=== PATIENT | male | born 1975 | race Caucasian/White ===

== ENCOUNTER 2020-12-17 19:13 | Emergency (ER) | payer OTHER, SELFPAY ==
--- NOTE | ~2020-12-17 | XR_ITS ---
XR chest 1V portable DATE: 12/17/2020 23:53 INDICATION: Left lower rib pain TECHNIQUE: Portable upright AP chest on 12/17/2020 at 2353 hours COMPARISON: None FINDINGS: Heart size appears within normal range considering magnification associated with AP project ion. No hilar or mediastinal enlargement. No pulmonary consolidation, pleural effusion, pulmonary vas cular congestion or pneumothorax is evident. Included skeletal structures are unremarkable. IMPRESSION: No active cardiopulmonary disease Reviewed, dictated and finalized at location [facility].
--- NOTE | ~2020-12-17 | CT_ITS ---
EXAMINATION: CT abdomen pelvis w con DATE: 12/17/2020 20:56 INDICATION: Abdominal pain for 6 days TECHNIQUE: Computed tomography (CT) of the abdomen and pelvis was performed with 100 cc Omnipaque 350 intravenous contrast. Automated exposure control and iterative reconstruction technique were employe d. Exam dose: 1001.61 mGy-cm total exam DLP. COMPARISON: None. FINDINGS: Mild discoid atelectasis or scarring in the lower lobes, primarily on the left. Normal heart size. No pericardial or pleural effusion. Very small sliding hiatal hernia. Approximately 2.7 mm calcification of the uncinate process of the pancreas. The liver, gallbladder, b ile ducts, pancreas and pancreatic duct otherwise appear normal. No renal mass lesion or urinary tract calculus or hydroureteronephrosis. The urinary bladder is unrem arkable. There are prostate gland calcifications as well as prostate and asymmetric left seminal vesi lj enlargement. Normal caliber of the abdominal aorta. No intraperitoneal or retroperitoneal or pelvic mass lesion or adenopathy or ascites is evident. Normal appendix. No bowel obstruction, bowel wall thickening, pneumatosis or intraperitoneal free air . Small fat-containing left inguinal hernia. Small fat-containing umbilical hernia. Degenerative disc disease at L3-4 and L4-5 with minimal retrolisthesis. Transitional first sacral vertebra. No suspicious osteolytic or osteoblastic lesions are noted. IMPRESSION: Very small sliding hiatal hernia Small pancreatic calcification, possibly due to mild chronic pancreatitis Normal appendix Prostate enlargement and calcifications, asymmetric left seminal vesicle enlargement. Consider prosta te cancer screening. Reviewed, dictated and finalized at [facility]. Reviewed, dictated and finalized at location A. IMPRESSION: Very small sliding hiatal hernia Small pancreatic calcification, possibly due to mild chronic pancreatitis Normal appendix Prostate enlargement and calcifications, asymmetric left seminal vesicle enlarg ement. Consider prostate cancer screening.
[2020-12-17 19:32] VITALS: BP 157/77; PULSE 73; RESP 18; O2SAT 100
[2020-12-17 19:52] LABS: Basophils Absolute Auto 0.1 K/mm3 (0.0-0.1); Basophils Percent Auto 0.8 % (0.2-1.2); Eosinophils Absolute Auto 0.3 K/mm3 (0-0.3); Eosinophils Percent Auto 3.1 % (0-4.4); Hematocrit 45.4 % (42.0-52.0); Hemoglobin 15.6 g/dL (14.0-18.0); Immature Granulocyte Absolute 0.03 K/mm3 (0.00-0.031); Immature Granulocyte Percent A 0.3 % (0-0.5); Lymphocytes Absolute Auto 3.29 K/mm3 (0.9-3.2); Lymphocytes Percent Auto 37.6 % (18.3-44.2); Mean Corpuscular HGB Conc 34.4 g/dl (32-36); Mean Corpuscular Hemoglobin 31.1 pg (26-34); Mean Corpuscular Volume 90.6 fl (80-100); Monocytes Absolute Auto 0.7 K/mm3 (0.1-0.6); Monocytes Percent Auto 8.1 % (2.6-8.5); Neutrophils Absolute Auto 4.4 K/mm3 (1.3-6.7); Neutrophils Percent Auto 50.1 % (45.5-73.1); Platelet Count Result 291 k/mm3 (150-375); Red Blood Count 5.01 M/mm3 (4.6-6.20); Red Cell Distribution Width 12.4 % (11.5-14.5); White Blood Count 8.8 K/mm3 (4.5-10.0)
[2020-12-17 19:54] LABS: Add Urine Microscopic? NO; Appearance Urine Clear (Clear); Bilirubin Urine Negative (Negative); Blood Urine Negative (Negative); Color Urine Straw (Yellow); Glucose Urine UA Negative (Negative); Ketones Urine Negative (Negative); Leukocyte Esterase Ur Negative LEU/UL (Negative); Nitrate Urine Negative (Negative); Protein Urine Negative (Negative); Specific Grav Ur 1.009 (1.001-1.035); Urobilinogen Urine Negative mg/dL (<2.0)
[2020-12-17 20:03] LABS: Anion Gap 12 mmol/L (8-16); Blood Urea Nitrogen 14 mg/dL (9-20); Calcium 9.7 mg/dL (8.4-10.2); Carbon Dioxide 26 mmol/L (22-30); Chloride 103 mmol/L (98-107); Estimated CRCL calculation 105 ml/min; Estimated Glomerular Filt Rate > 60; Glucose 101 mg/dL (75-110); Lipase 88 U/L (23-300); Potassium 4.3 mmol/L (3.4-5.0); Sodium 141 mmol/L (137-145)
[2020-12-17 23:16] VITALS: BP 140/80; PULSE 59; RESP 20; TEMP 36.7; O2SAT 100
[2020-12-17 23:23] VITALS: BP 140/80; PULSE 66; RESP 16; O2SAT 100
--- NOTE | 2020-12-17 23:24 | PC.NURSE ---
pt c/o LUQ pain x 1 week. no pcp. denies past medical hx. reports he feels bloated. no s/s of distress. call light in reach.
--- NOTE | 2020-12-17 23:36 | ED.ABDPAIN ---
HPI - Abdominal Pain General Chief Complaint: Abdominal Pain Stated Complaint: adb pain x 6 days Time Seen by Provider: 12/17/20 23:25 Source: patient and RN notes reviewed Mode of arrival: ambulatory History of Present Illness HPI narrative: Patient is 45 years old white male presents with left upper quadrant pain radiating to left lower ribs posteriorly started 6 days ago, back spasm, worse with eating or drinking, denies any relieving factors. Patient denies any recent trauma or new physical activity. Patient also denies any fever, chills, nausea, vomiting, diarrhea, constipation, shortness of breath. Reports intermittent left chest pain. Patient been vaccinated for COVID-19. Does not take medicine, does not smoke, does not drink or uses drugs Related Data Allergies Allergy/AdvReac Type Severity Reaction Status Date / Time No Known Allergies Allergy Verified 12/17/20 23:21 Review of Systems Review of Systems: Narrative: CONSTITUTIONAL: Denies fever, chills, or sweats. EYES: Denies visual changes, redness, or discharge. ENT: Denies rhinorrhea, congestion, sore throat, or otalgia. CARDIOVASCULAR: Denies chest pain, palpitations, or edema. RESPIRATORY: Denies cough or dyspnea. GASTROINTESTINAL: Denies abdominal pain, nausea, vomiting, or diarrhea. GENITOURINARY: Denies dysuria or hematuria. SKIN: Denies rash or itching. MUSCULOSKELETAL: Denies back pain, joint pain, or myalgia. NEUROLOGIC: Denies headache, numbness, or weakness. PSYCHIATRIC: Denies anxiety or depression. Exam Narrative: Exam Narrative: General appearance: Well-developed, well-nourished Skin: Normal color, no rash Head: Normocephalic, nontraumatic Eyes: Clear conjunctiva ENT: Oropharynx normal, ears normal, nose normal Neck: Supple, nontender Chest and respiratory: Airway patent, no respiratory distress, no accessory muscle use Heart: Regular rate/rhythm Abdomen: Soft, nontender, no organomegaly, quiet bowel sounds Vascular: Normal peripheral pulses, normal capillary refill. Musculoskeletal: Normal range of motion, nontender back Neurologic: Alert and oriented ?3, [employer] is normal as tested, no gross motor deficit Course Course Emergency Course: Stable Reevaluation(s) Reevaluation #1: Patient feeling okay except intermittent discomfort at left upper quadrant. Declined to take any pain medication at this time. Patient was notified about the finding of the CT scan of the abdomen and my recommendation to follow-up with sales representative supervisor and urologist for further evaluation. Patient understood and agreed Date: 12/17/20 Time: 23:47 Vital Signs Vital signs: Vital Signs Pulse Rate 73 12/17/20 19:32 Respiratory Rate 18 12/17/20 19:32 Blood Pressure 157/77 H 12/17/20 19:32 Pulse Oximetry 100 12/17/20 19:32 Temperature 36.7 C 12/17/20 23:16 Pulse Rate 66 12/17/20 23:23 Respiratory Rate 16 12/17/20 23:23 Blood Pressure 140/80 12/17/20 23:23 Pulse Oximetry 100 12/17/20 23:23 MDM - Abdominal Pain MDM Narrative Medical decision making narrative: Abdominal pain, Differential diagnosis as below. Labs, UA, CT abdomen pelvis with IV contrast, chest x-ray. Further plan to follow Differential Diagnosis Differential diagnosis: Likely abdominal pain, calculus of kidney, constipation, diverticulitis, pancreatitis and other (Left lower lobe pneumonia, shingles, splenic infarction,) Lab Data Result diagrams: 12/17/20 19:41 12/17/20 19:41 Labs: Lab Results 12/17/20 12/17/20 12/17/20 Range/Units 19:41 19:41 19:41 WBC 8.8 (4.5-10.0) K/mm3 RBC 5.01 (4.6-6.20) M/mm3 Hgb 15.6 (14.0-18.0) g/dL Hct 45.4 (42.0-
[2020-12-18 01:20] VITALS: BP 134/89; PULSE 78; RESP 16; TEMP 36.3; O2SAT 97
== END 2020-12-18 01:22 | disposition home or self-care (01) ==
PROVIDERS: Emergency Medicine; Emergency Provider Emergency Medicine
DX: K86.89 Other specified diseases of pancreas (principal); N40.0 Benign prostatic hyperplasia without lower urinary tract symptoms; N50.9 Disorder of male genital organs, unspecified
CPT/HCPCS: 36415; 71045; 74177; 80048; 81003; 83690; 85025; 99284; Q9967

== ENCOUNTER 2023-02-02 14:01 | Outpatient (CLI) | payer OTHER, SELFPAY ==
[2023-02-02 15:08] LABS: Appearance Urine Clear (Clear); Bilirubin Urine Negative (Negative); Blood Urine Negative (Negative); Color Urine Yellow (Yellow); Glucose Urine UA Negative (Negative); Ketones Urine Negative (Negative); Leukocyte Esterase Ur Negative LEU/UL (NEGATIVE); Nitrate Urine Negative (Negative); Protein Urine Negative (Negative); Specific Grav Ur 1.008 (1.001-1.035); Urobilinogen Urine 0.2 mg/dL (<2.0); pH Urine 5.5 (5.0-9.0)
[2023-02-02 15:12] LABS: Add Urine Microscopic? NO; Hematocrit 46.1 % (42.0-52.0); Hemoglobin 15.6 g/dL (14.0-18.0); Mean Corpuscular HGB Conc 33.8 g/dl (32-36); Mean Corpuscular Hemoglobin 31.6 pg (26-34); Mean Corpuscular Volume 93.3 fl (80-100); Mean Platelet Volume 9.6 fl (7.4-10.4); Platelet Count Result 281 k/mm3 (150-375); Red Blood Count 4.94 M/mm3 (4.6-6.20); Red Cell Distribution Width 12.7 % (11.5-14.5); White Blood Count 6.7 K/mm3 (4.5-10.0)
[2023-02-02 15:45] LABS: Erythrocyte Sedimentation Rate 8 mm/hr (0-20)
[2023-02-02 15:59] LABS: HIV 1/2 Ab P24 Ag Result Negative (Negative)
[2023-02-02 16:01] LABS: Creatinine Urine 54.1 mg/dL
[2023-02-02 16:15] LABS: Microalbumin Urine Random < 6.0 mg/L (0-16.7)
[2023-02-02 16:16] LABS: MALB Creatinine Ratio < 11.1 mg/g (0-30)
[2023-02-02 16:50] LABS: Free T4 Free Thyroxine 1.31 ng/mL (0.78-2.19); Vitamin D 25 Hydroxy 50.8 ng/mL
[2023-02-02 17:02] LABS: Hepatitis B Surface Antigen Negative (Negative)
[2023-02-02 17:08] LABS: HAV RESULT Negative (Negative); Hepatitis B Core IgM Result Negative (Negative)
[2023-02-02 17:19] LABS: Hepatitis C Virus Antibody Negative (Negative)
[2023-02-02 21:26] LABS: Alanine Aminotransferase 29 U/L (6-50); Albumin Level 4.8 g/dL (3.5-5.1); Alkaline Phosphatase 75 U/L (38-126); Aspartate Amino Transferase 28 U/L (17-59); Bilirubin,Total 0.8 mg/dL (0.2-1.3); Blood Urea Nitrogen 14 mg/dL (9-20); Calcium 9.5 mg/dL (8.4-10.2); Carbon Dioxide 24 mmol/L (22-30); Cholesterol 194 mg/dL (0-200); Estimated Glomerular Filt Rate > 60; Glucose 100 mg/dL (65-110); HDL Direct 31 mg/dL; Potassium 4.1 mmol/L (3.4-5.0); Sodium 140 mmol/L (137-145); Triglycerides 272 mg/dL (<150)
[2023-02-02 21:35] LABS: LDL Cholesterol Direct 111 mg/dL
[2023-02-02 21:53] LABS: Prostate Specific Antigen 1.2 ng/mL (< OR = 4.0)
[2023-02-02 22:20] LABS: Rheumatoid Factor < 12.0 IU/ML (<12)
[2023-02-03 00:55] LABS: Anion Gap 12 mmol/L (8-16); Chloride 104 mmol/L (98-107)
[2023-02-03 01:09] LABS: Hemoglobin A1C 5.4 % (<5.7)
[2023-02-03 12:45] LABS: Rapid Plasma Reagin Non-Reactive (NonReactive)
[2023-02-06 08:14] LABS: Lyme Disease Ab (IgM), Blot Negative (Negative); Lyme Disease Ab(IgG), Blot Negative (Negative)
== END 2023-02-02 14:02 | disposition home or self-care (01) ==
PROVIDERS: Referring Provider Urology; Visit Provider Emergency Medicine
DX: N50.89 Other specified disorders of the male genital organs (principal); Z80.42 Family history of malignant neoplasm of prostate
CPT/HCPCS: 36415; 80053; 80061; 80074; 81003; 82043; 82306; 82785; 83036; 84153; 84439; 84443; 85027; 85652; 86003; 86038; 86430; 86592; 86617; 86703; 87086; 87491; 87591; G0432

== ENCOUNTER → 2023-02-19 16:13 | Outpatient (CLI) | payer OTHER, SELFPAY ==
--- NOTE | ~2023-02-19 | XR_ITS ---
EXAMINATION: XR thoracic spine 2V DATE: 02/19/2023 16:47 INDICATION: Back pain TECHNIQUE: AP and lateral views of the thoracic spine were obtained. COMPARISON: None. FINDINGS: Bone alignment is normal. There is no fracture. There are 25 degrees of upper thoracic levo scoliosis. The vertebral body heights and intervertebral disc space heights appear normal. IMPRESSION: 1. No acute osseous abnormality. Upper thoracic levoscoliosis. Reviewed, dictated and finalized at location F.
--- NOTE | ~2023-02-19 | XR_ITS ---
EXAMINATION: XR humerus LT INDICATION: Left arm pain TECHNIQUE: Two views of the left humerus are obtained on four radiographs. COMPARISON: None available FINDINGS: No fracture, dislocation, or subluxation. The bones, soft tissues, and joint spaces are nor mal. IMPRESSION: 1. No acute osseous abnormality. Reviewed, dictated and finalized at location F.
--- NOTE | ~2023-02-19 | XR_ITS ---
EXAMINATION: XR lumbar spine 2-3V DATE: 02/19/2023 16:47 INDICATION: Low back pain TECHNIQUE: Anteroposterior and lateral views of the lumbar spine, and cone-down lateral view of the l umbosacral junction were obtained. COMPARISON: CT, 12/17/2020 FINDINGS: There is unchanged moderate loss of intervertebral disc space height of the lower lumbar sp ine. The vertebral body heights are maintained. There is no fracture. There is moderate facet joint o steoarthritis of the lower lumbar spine. Small degenerative osteophytes project from the anterior end plates of multiple vertebral bodies. IMPRESSION: 1. Moderate lower lumbar spondylosis without acute findings or significant interval change. Reviewed, dictated and finalized at location F. IMPRESSION: 1. Moderate lower lumbar spondylosis without acute findings or significant inte rval change.
--- NOTE | ~2023-02-19 | XR_ITS ---
EXAMINATION:XR cervical spine 4-5V DATE: 02/19/2023 16:47 INDICATION: Neck pain TECHNIQUE: AP, lateral, lateral swimmers and odontoid views of the cervical spine are provided. COMPARISON: None FINDINGS: There are 3 mm of retrolisthesis of C5 on C6. The odontoid process is intact. No fracture i s identified. The vertebral body heights are maintained. There is mild loss of intervertebral disc sp maureen height at C5-6. Small degenerative osteophytes project from the anterior endplates of multiple ve rtebral bodies. There is cervicothoracic levoscoliosis. Prevertebral soft tissues are normal. IMPRESSION: 1. Mild cervical spondylosis without acute findings. Reviewed, dictated and finalized at location F.
== END ==
PROVIDERS: PCP Emergency Medicine; Visit Provider Emergency Medicine
DX: M47.896 Other spondylosis, lumbar region (principal); M47.892 Other spondylosis, cervical region; M79.602 Pain in left arm
CPT/HCPCS: 72050; 72070; 72100; 73060

== ENCOUNTER 2024-02-03 14:11 | Outpatient (CLI) | payer OTHER, SELFPAY ==
[2024-02-03 14:48] LABS: Hematocrit 43.8 % (42.0-52.0); Hemoglobin 15.2 g/dL (14.0-18.0); Mean Corpuscular HGB Conc 34.7 g/dl (32-36); Mean Corpuscular Hemoglobin 31.8 pg (26-34); Mean Corpuscular Volume 91.6 fl (80-100); Mean Platelet Volume 9.3 fl (7.4-10.4); Platelet Count Result 243 k/mm3 (150-375); Red Blood Count 4.78 M/mm3 (4.6-6.20); Red Cell Distribution Width 12.7 % (11.5-14.5); White Blood Count 8.2 K/mm3 (4.5-10.0)
[2024-02-03 15:00] LABS: Alanine Aminotransferase 25 U/L (6-50); Albumin Level 4.9 g/dL (3.5-5.1); Alkaline Phosphatase 65 U/L (38-126); Anion Gap 13 mmol/L (4-12); Aspartate Amino Transferase 22 U/L (17-59); Bilirubin,Total 0.8 mg/dL (0.2-1.3); Blood Urea Nitrogen 16 mg/dL (9-20); Calcium 9.1 mg/dL (8.4-10.2); Carbon Dioxide 24 mmol/L (22-30); Chloride 99 mmol/L (98-107); Cholesterol 194 mg/dL (0-200); Estimated Glomerular Filt Rate > 60; Glucose 107 mg/dL (65-110); HDL Direct 28 mg/dL; Potassium 3.9 mmol/L (3.4-5.0); Sodium 136 mmol/L (137-145); Triglycerides 453 mg/dL (<150)
[2024-02-03 15:11] LABS: LDL Cholesterol Direct 105 mg/dL
[2024-02-03 15:32] LABS: Hemoglobin A1C 5.8 % (<5.7)
[2024-02-03 16:51] LABS: MALB Creatinine Ratio < 9.1 mg/g (0-30); Microalbumin Urine Random < 6.0 mg/L (0-16.7)
[2024-02-03 17:02] LABS: Free T4 Free Thyroxine 1.09 ng/mL (0.78-2.19); Vitamin D 25 Hydroxy 32.3 ng/mL
== END 2024-02-03 14:12 | disposition home or self-care (01) ==
LOC: ANHLAB 14:16
PROVIDERS: PCP Emergency Medicine; Visit Provider Emergency Medicine
DX: M54.50 Low back pain, unspecified (principal); I10 Essential (primary) hypertension; Z00.00 Encounter for general adult medical examination without abnormal findings
CPT/HCPCS: 36415; 80053; 80061; 82043; 82306; 83036; 84153; 84439; 84443; 85027